=== PATIENT | female | born 1965 | race Two or more races ===

== ENCOUNTER 2017-05-28 15:11 | Emergency (ER) | payer MEDICAID ==
[2017-05-28 15:20] VITALS: BP 109/62; PULSE 55; RESP 20; TEMP 98.2; O2SAT 96
--- NOTE | 2017-05-28 15:36 | EDPHY ---
H & P Time Seen by Provider: 05/28/17 15:34 HPI/ROS: CHIEF COMPLAINT: Right thumb injury HISTORY OF PRESENT ILLNESS: 52-year-old female arrives via private vehicle complaining of acute right thumb injury which occurred 4 days ago when the dog impacted her thumb. She notes inability to flex or extend at the IP joint of the right thumb. No paresthesia. PHYSICAL EXAM (Prior to examination, patient consented to physical exam, hands were washed and my usual and customary physical exam procedures followed) 1) GENERAL: Well-developed, well-nourished, alert and oriented. Appears to be in no acute distress. 2) HEAD: Normocephalic 3) HEENT: sclera anicteric 4) LUNGS: Breathing comfortably. 5) SKIN: There is a noted dorsal deformity at the IP joint of the right thumb consistent with dislocation. No tenting of skin. Full sensation two-point discrimination intact distally. Capillary refill less than 2 sec. Smoking Status: Never smoked Constitutional: Initial Vital Signs Temperature (C) 36.8 C 05/28/17 15:17 Heart Rate 55 L 05/28/17 15:17 Respiratory Rate 20 05/28/17 15:17 Blood Pressure 109/62 05/28/17 15:17 O2 Sat (%) 96 05/28/17 15:17 O2 Delivery Mode Room Air Allergies/Adverse Reactions: No Known Allergies Allergy (Unverified 05/28/17 15:16) Home Medications: Medication Instructions Recorded Ibuprofen 05/28/17 MDM/Departure - MDM Imaging Results: Imaging Impressions Finger X-Ray 05/28/17 15:20 Impression: Dorsal lateral IP joint dislocation. Finger X-Ray 05/28/17 15:41 Impression: Successful reduction of the thumb IP joint dislocation. Images reviewed myself Procedures: Procedure: Dislocation reduction. . The dislocation of the right thumb at the IP joint was reduced using traction and counter traction technique without complications. Post reduction the patient's neurovascular exam is normal. Post reduction x-ray demonstrates reduction of the joint to the anatomic position. The procedure was performed by myself. Procedure: Splint A Velcro thumb spica splint was applied by ER claim technician. After application of the splint I returned and re-examined the patient. The splint was adequately immobilizing the joint and distal to the splint the patient's circulation and sensation were intact. Patient shows no signs of compartment syndrome. Was given orthopedic precautions. ED Course/Re-evaluation: Patient has been informed that due to her delay in seeking medical care, namely dislocation present for 4 days, this may result in permanent and chronic disability of the right thumb. The IP joint has been reduced, recommend she follow up with Hand surgery in given this referral information. Care of patient under supervision of secondary supervising physician Dr Gillette . - Depart Disposition: Home, Routine, Self-Care Clinical Impression: Dislocated thumb Qualifiers: Encounter type: initial encounter Laterality: right Qualified Code(s): S63.104A - Unspecified dislocation of right thumb, initial encounter Condition: Good Instructions: Finger Dislocation (ED) Additional Instructions: Return to the ER immediately if you experience discoloration, have worsening pain, numbness, tingling, or any other symptoms that concern you. If you received x-rays in the emergency department today, be advised, that ligamentous , tendon, muscular, and other non-bony injury cannot be fully ruled out. Try to keep your affected extremity elevated above the level of your chest, and keep cold packs on the affected area, for the next 48 hours. Referrals: Juan Adkins MD [Medical Doctor] - 2-3 days, call for appt.
== END 2017-05-28 16:02 | disposition home or self-care (01) ==
PROC: 0RSWXZZ Reposition Right Finger Phalangeal Joint, External Approach (ICD-10-PCS; principal; 2017-05-28)
DX: S63.104A Unspecified dislocation of right thumb, initial encounter (principal); X58.XXXA Exposure to other specified factors, initial encounter
CPT/HCPCS: L3807